=== PATIENT | female | born 1935 | race Caucasian/White ===

== ENCOUNTER 2019-05-04 15:27 | Inpatient (IN) | payer MEDICARE, OTHER ==
[~2019-05-04 15:27] MED LIST: Iopamidol-370 76% 500 ML 1 ML ONE
[2019-05-04 16:36] LABS: #Lymphocytes 0.8 thou/uL (1.20-3.40); #Monocytes 0.3 thou/uL (0.11-0.59); #Neutrophils 7.6 thou/uL (1.40-6.50); %Basophils 0.3 % (0.0-1.0); %Eosinophils 0.2 % (0.0-10.0); %Lymphocytes 9.4 % (21.0-51.0); %Monocytes 3.5 % (0.0-10.0); %Neutrophils 86.6 % (42.0-75.0); Hemoglobin 13.9 g/dL (12.0-16.0); Mean Corpuscular HGB CONC 33.6 g/dL (32.0-36.0); Mean Corpuscular Hemoglobin 33.9 pg (27.0-31.0); Platelet Count 251 thou/uL (130-400); RBC Distribution Width 12.2 % (11.5-14.5); White Blood Cell (WBC) Count 8.7 thou/uL (4.8-10.8)
--- NOTE | 2019-05-04 16:44 | CT ---
CT head noncontrast HISTORY: Altered mental status. Twitching. Known intracranial masses. COMPARISON: None available. FINDINGS: Centered at the cox-white junction of the right parietal lobe is a subtle, somewhat ill-de fined oval 0.9 cm hyperdense focus. It is at the periphery of a large area of decreased density having the appearance of encephalomalacia. This extends through the cortex of the right parietal lobe at the level of the hyperdense lesion. Less prominent encephalomalacia is present throughout the white matter of the left cerebral hemispher e. A tiny hyperdense focus associated with a sulcus at the left occipital lobe on image #14 may represen t a vessel or punctate calcification. Ventricles are unremarkable. No significant mass effect. IMPRESSION: Severe bilateral scoliosis. Small hyperdense lesion near the cox-white junction of the right parietal lobe is likely associated with a mass, given the patient's history. The hyperdensity could represent a small amount of hemorrhagic component, calcium, or melanin. Encephalomalacia extending through the cortex at this lev el suggest component of an old infarct. Contrast enhanced exam is pending.
[2019-05-04 16:55] LABS: Acetaminophen Less than 6.0 mcg/mL (10.0-30.0); Alcohol Less than 10 mg/dL (Less than 10); CK (CPK) 26 U/L (29-168); Magnesium 1.2 mg/dL (1.6-2.6); Salicylate Less than 8.0 mg/dL (15.0-30.0)
[2019-05-04 17:01] LABS: ALT (SGPT) 18 U/L (8-55); AST (SGOT) 15 U/L (5-34); Albumin 4.1 g/dL (3.4-4.8); Alkaline Phosphatase 67 U/L (40-110); Anion Gap 16 mmol/L (10-20); BUN (Urea Nitrogen) 18 mg/dL (9.8-20.1); Bilirubin, Total 0.6 mg/dL (0.2-1.2); Calc. Creatinine Clearance 0 mL/min (70-130); Calcium 9.6 mg/dL (7.8-10.44); Carbon Dioxide 24 mmol/L (23-31); Chloride 105 mmol/L (98-107); Estimated GFR-MDRD 66; Globulin 2.5 g/dL (2.4-3.5); Glucose 126 mg/dL (83-110); Potassium 3.8 mmol/L (3.5-5.1); Protein, Total 6.6 g/dL (6.0-8.3); Sodium 141 mmol/L (136-145)
--- NOTE | 2019-05-04 17:03 | CT ---
CT arteriogram neck with IV contrast CT arteriogram head with IV contrast CT brain with IV contrast HISTORY: Altered mental status. Known intracranial masses. FINDINGS: Prominent calcification throughout the arterial structures. Normal branching of the great v essels at the aortic arch with prominent calcification. Within the proximal right ICA, calcification results in narrowing of approximately 60%. Remainder of the internal carotid arteries a re free of significant stenosis. [place] is intact. Good flow into each cerebral and cerebellar system. No enhancing brain lesions are reliably demonstrated. There is subtle gyriform enhancement of the rig ht parietal lobe were encephalomalacia is again demonstrated. No enhancing lesion is apparent at the cox-white junction were a small hyperdense lesion was present on recent noncontrast enhanced CT. Inferior most images show irregular soft tissue density mass within the superior segment left lower l obe measuring up to 3.4 cm greatest diameter. There is suggestion of some internal vessels. A pleural-based 2.1 cm mass is also present within the posterior aspect of the right upper lobe. Sugges tion of spiculated margins. Subtle spiculated lesion is also present at the left lung apex without a well-defined mass evident. IMPRESSION: Atherosclerosis with short segment focus of moderate stenosis within the right internal c arotid artery. The abnormality in the right parietal lobe, in the absence of an enhancing mass, likely represents a small focus of hemorrhagic transformation of a developing infarct. Masses within the partially visualized lungs as detailed above. CT chest is pending. Findings were discussed with Dr. Rogers of the emergency department at 1653 hours. Code CR.
[2019-05-04] MEDS ORDERED: Lorazepam 2 MG/ML VIAL ONE (17:07)
--- NOTE | 2019-05-04 17:22 | RAD ---
SINGLE VIEW OF THE CHEST: 05/04/19 COMPARISON: None. HISTORY: Seizure-like movements in the left arm and altered mental status. FINDINGS: Single view of the chest shows an enlarged cardiomediastinal silhouette. Linear opacity in the right lung base likely represents atelectasis. There is no evidence of consolidation, mass, or pleural effu tj. IMPRESSION: Right basilar atelectasis. POS: C
[2019-05-04] MEDS ORDERED: Magnesium 2 GM/50 ML BAG (IN WATER) ONE (17:41)
[2019-05-04] MEDS ORDERED: Dexamethasone 10 MG/ML VIAL ONE (17:41)
--- NOTE | 2019-05-04 17:42 | CT ---
CT chest with IV contrast CT abdomen and pelvis with IV contrast HISTORY: Lung cancer. Chest and abdomen pain. FINDINGS: The pleural-based mass within the posterior aspect of the right upper lobe measures 1.7 cm greatest oblique diameter on the current axial images. The lobular mass within the medial aspect of the superior segment left lower lobe is 3.2 cm. Subtle area of spiculation without definite mass is demonstrated at the left lung apex. Lungs are oth erwise hyperinflated with scattered areas of scarring. Old bilateral rib fractures. No mediastinal adenopathy or pleural fluid are apparent. Small low-densi ty adenoma of the left adrenal gland. Prominent calcification throughout the arterial structures. Diverticula arise from the colon without adjacent inflammation. Tiny cyst of the left kidney. Vertebroplasty and compression deformities at the lumbosacral junction of the spine. There is retropu lsion of the superior endplate and cemented at the lower of the 2 levels, compromising the AP diameter of the central canal by approximately 40%. IMPRESSION: Bilateral lung masses as detailed above, consistent with known history of lung cancer. Prominent atherosclerosis. Diverticulosis. No evidence of diverticulitis. Moderate compromise of the central spinal canal of the lower thoracic spine due to retropulsion of a compressed vertebral body and vertebroplasty cement.
[2019-05-04 18:13] LABS: Bilirubin Negative (Negative); Blood, Urine Negative (Negative); Clarity Clear (Clear); Glucose, Urine (Dipstick) Normal (Negative); Leukocyte Negative Leu/uL (Negative); Nitrite Negative (Negative); Protein, Urine (Dipstick) Negative (Neg-Trace); Urobilinogen Normal mg/dL (Less than 2)
[2019-05-04 18:23] LABS: Amphetamine Not Detected (NotDetected); Barbiturates Screen Not Detected (NotDetected); Benzodiazepine Screen Detected (NotDetected); Cocaine Metabolite Screen Not Detected (NotDetected); Medtox Control Line Valid? VALID (VALID); Medtox Reader # READER 4; Methadone Not Detected (NotDetected); Methamphetamine Not Detected (NotDetected); Opiate Screen Not Detected (NotDetected); Oxycodone Screen Not Detected (NotDetected); Phencyclidine (PCP) Not Detected (NotDetected); THC/Cannabinoid Screen Not Detected (NotDetected); Tricyclic Screen Not Detected (NotDetected)
--- NOTE | 2019-05-04 21:04 | PDOC.HHP ---
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 She recently moved froim the [facility] to here and is living in assisted living. She has a pulmonology progress note with her, which is where most of chart review comes from, I am sure that this history is incomplete as she had a number of specialists managing some very complicated issues who she is attempting to transfer and find new doctors here. From what I can gather, catia had a lung mass which was biopsied and was adenocarcinoma. She has apparantly had mets to the brain and recieved 9 sessions of CyberKnife, which appears to be a robotic assisted form of radiation therapy. She was doing well, continued to have partial seizures/L arm tremor, they worsened suddenly and became less controllable, she takes Keppra at home for seizure management. She has appt with Dr Quintero at end of month, is unsure if she has had keppra or had run out and does not remember details of medications. outside records reviewed patient had with her and in chart. CT head revealed parietal lobe mass 0.9cm Of note patient had discussed with previous medical record administrator about goals of care and she prefers a more comfort based approach in general and confirms DNR. palliative care consult placed. neurosurgery consult also placed. NOTE: outside CT reveals possible hemorrhagic transform of mass. MRI pending here Hospitalist ROS - Review of Systems Constitutional: denies: fever, chills Eyes: denies: pain, vision change ENT: denies: ear pain, mouth pain Respiratory: denies: cough, shortness of breath, wheezing Cardiovascular: denies: chest pain, palpitations Gastrointestinal: denies: nausea, vomiting, hematochezia Genitourinary: denies: dysuria, frequency Skin: denies: rash, lesions Neurological: reports: incoordination, seizures All other systems reviewed; all pertinent +/- noted in HPI/Subj Hospitalist History - Past Medical History Other Medical History: lung adenocarcinoma w/ mets to brain HTN COPD - Past Surgical History Past Surgical History: reports: Cholecystectomy Other Surgical History: L hip reppair stent in pancreas and removal - Family History Family History: reports: no pertinent history - Social History Smoking Status: Former smoker Alcohol: reports: Occassional, Heavy - Exam General Appearance: NAD, awake alert Eye: PERRL, anicteric sclera ENT: normocephalic atraumatic, no oropharyngeal lesions, moist mucosa Neck: supple, symmetric, no JVD, no thyromegaly, no lymphadenopathy, no carotid bruit Heart: RRR, no murmur, no gallops, no rubs, normal peripheral pulses Respiratory: CTAB, no wheezes, no rales, no ronchi, normal chest expansion, no tachypnea, normal percussion Gastrointestinal: soft, non-tender, non-distended, normal bowel sounds, no palpable masses, no hepatomegaly, no splenomegaly, no bruit Extremities: no cyanosis, no clubbing, no edema Skin: normal turgor, no lesions, no rashes Neurological: cranial nerve grossly intact, normal sensation to touch, no weakness, no focal deficits, no new deficit Musculoskeletal: normal tone, normal strength, no muscle wasting Psychiatric: normal affect, normal behavior, A&O x 3 Hospitalist Results - Labs Result Diagrams: 05/04/19 16:27 05/04/19 16:27 Lab results: WBC 8.7 thou/uL (4.8-10.8) 05/04/19 16:27 Hgb 13.9 g/dL (12.0-16.0) 05/04/19 16:27 Hct 41.4 % (36.0-47.0) 05/04/19 16:27 MCV 101.0 fL (78.0-98.0) H 05/04/19 16:27 Plt Count 251 thou/uL (130-400) 05/04/19 16:27 Neutrophils % 86.6 % (42.0-75.0) H 05/04/19 16:27 Sodium 141 mmol/L (136-145) 05/04/19 16:27 Potassium 3.8 mmol/L (3.5-5.1) 05/04/19 16:27 Chloride 105 mmol/L (98-107) 05/04/19 16:27 Carbon Dioxide 24 mmol/L (23-31) 05/04/19 16:27 BUN 18 mg/dL (9.8-20.1) 05/04/19 16:27 Creatinine 0.83 mg/dL (0.6-1.1) 05/04/19 16:27 Glucose 126 mg/dL (83-110) H 05/04/19 16:27 Lactic Acid 1.5 mmol/L (0.5-2.2) 05/04/19 16:27 Calcium 9.6 mg/dL (7.8-10.44) 05/04/19 16:27 Total Bilirubin 0.6 mg/dL (0.2-1.2) 05/04/19 16:27 AST 15 U/L (5-34) 05/04/19 16:27 ALT 18 U/L (8-55) 05/04/19 16:27 Alkaline Phosphatase 67 U/L (40-110) 05/04/19 16:27 Creatine Kinase 26 U/L (29-168) L 05/04/19 16:27 Serum Total Protein 6.6 g/dL (6.0-8.3) 05/04/19 16:27 Albumin 4.1 g/dL (3.4-4.8) 05/04/19 16:27 Urine Ketones Negative mg/dL (Negative) 05/04/19 17:27 Urine Blood Negative (Negative) 05/04/19 17:27 Urine Nitrite Negative (Negative) 05/04/19 17:27 Ur Leukocyte Esterase Negative Pamella/uL (Negative) 05/04/19 17:27 Hospitalist H&P A/P - Plan Plan: 83 year old female with PMH COPD, HTN, metastatic lung adenocarcinoma w/ brain mets admitted for: # worsening simple partial seizure activity in the setting of lung adenocarcinoma metastatic to brain - admit to floor - neurosurgery consulted by ED and will follow, also consults placed for oncology and neurology, appreciate assistance - start high dose IV dex 4mg q6h - MRI brain w/wo contrast - patient previously saw Dr Azul of neurology in [place] and Dr Phillips of pulmonology and Dr Gonzalez (sp?) of oncology, she is perhaps leaning towards hospice or palliative level care, so will consult palliative care and can make a decision this admission on whether to become hospice and return to prior situation w/ comfort measures vs set her up with new specialists in the area - continue keppra # history of COPD - patient has an old pulm note with her, was on inhalers for COPD, has 100 pack year smoking hisotry, resume home meds once med rec complete # HTN - ordered PRNs, restart home meds once med rec complete Code status: discussed, DNR. palliative consult. apprecaite all specialist efforts
[2019-05-05] MEDS ORDERED: Lorazepam 2 MG/ML VIAL SLOW IVP PRN (00:43)
[2019-05-05] MEDS ORDERED: levETIRAcetam 500 MG TAB PO SCH ×2 (00:45→09:00)
[2019-05-05] MEDS ORDERED: Bisacodyl 10 MG SUPP PR PRN (00:48)
[2019-05-05] MEDS ORDERED: Acetaminophen 325 MG TAB PO PRN (00:48)
[2019-05-05] MEDS ORDERED: HYDROcodone/Acetaminophen 5/325 mg Tablet PO PRN (00:48)
[2019-05-05] MEDS ORDERED: Bisacodyl 5 MG TAB PO PRN (00:48)
[2019-05-05] MEDS ORDERED: Morphine 2 MG/ML SYRINGE SLOW IVP PRN (01:00)
[2019-05-05] MEDS ORDERED: Promethazine HCl 12.5 MG in Sodium Chloride 0.9% 50 ML IVPB PRN (01:00)
[2019-05-05] MEDS ORDERED: Ondansetron PF 4 MG/2 ML Vial IVP PRN (01:00)
[2019-05-05] MEDS ORDERED: Dexamethasone 4 mg/ml Vial SLOW IVP SCH (01:00)
[2019-05-05] MEDS ORDERED: cloNIDine 0.1 MG TAB PO PRN (01:00)
[2019-05-05] MEDS ORDERED: hydrALAZINE 20 MG/ML VIAL SLOW IVP PRN (01:00)
[2019-05-05 03:40] VITALS: BMI 32.8
[2019-05-05] MEDS: Dexamethasone 4 mg/ml Vial SLOW IVP SCH ×4 (06:36→23:39)
[2019-05-05] MEDS: Senokot S 8.6-50 MG TAB PO SCH ×2 (08:42→20:40)
--- NOTE | 2019-05-05 09:06 | CON ---
DATE OF CONSULTATION: HISTORY OF PRESENT ILLNESS: The patient is an 83-year-old female with a past medical history of metastatic lung cancer to the brain, hypertension, COPD, who presented to the emergency department for left upper extremity weakness and twitching. The patient reports that she was diagnosed with metastatic lung cancer in October of 2018. This was diagnosed in [place]. She has been seen by Radiation Oncology and Neurology. She has been treated with XRT of the brain, and her oncologists also recommended followup chemotherapy. However, the patient has decided that she does not wish to pursue chemotherapy or further treatments at this time. She recently moved to this area to live with her family and enjoy the time she has left. She also has a history of seizures with this metastatic lung cancer diagnosis. She is currently taking Keppra 500 mg [address] A noncontrast CT head on arrival is notable for small hyperdense area in the right parietal lobe, which likely represents underlying metastatic lesion with hemorrhagic conversion. Neurosurgery was consulted for further evaluation and management of this patient. PAST MEDICAL HISTORY: COPD, hypertension, metastatic lung cancer with brain lesion. PAST SURGICAL HISTORY: Cholecystectomy, left hip fracture repair, hysterectomy, pancreatic stent, XRT in the brain. SOCIAL HISTORY: The patient is a social drinker. She does not use any drugs. She is a former tobacco user. ALLERGIES: SHE IS ALLERGIC TO LEVAQUIN AND AMOXICILLIN. CURRENT MEDICATION LIST: 1. Keppra 500 mg p.o. b.i.d. 2. Amlodipine 5 mg one tablet p.o. daily. 3. Albuterol inhalation two puffs p.r.n. 4. Citalopram 20 mg one tablet p.o. daily. 5. Hydrochlorothiazide 25 mg one tablet p.o. daily. 6. Levothyroxine 88 mcg one tablet p.o. daily. 7. Lisinopril 40 mg one tablet p.o. daily. 8. Omeprazole 20 mg one tablet p.o. daily. 9. Temazepam 30 mg one tablet p.o. daily. REVIEW OF SYSTEMS: Per HPI. PHYSICAL EXAMINATION: VITAL SIGNS: Temperature is 97.7, pulse is 89, respirations 18, the patient is 93% on 2 L nasal cannula, blood pressure is 157/54. CONSTITUTIONAL: Awake, alert, no acute distress, sitting up in during her practice. HEENT: Head, normocephalic and atraumatic. Eyes, PERRLA. Extraocular movements are intact. ENT, oral mucosa is pink, intact, moist. She has normal voice. NECK: Nontender to palpation. Free active range of motion. No meningismus or nuchal rigidity. CARDIAC: Regular rate and rhythm. RESPIRATORY: Symmetric chest expansion. No evidence of dyspnea. MUSCULOSKELETAL: Free active range of motion of all extremities. She is mildly weak throughout the left upper extremity, 4+/5. NEUROLOGIC: A and O x4. Mild weakness in the left upper extremity as noted in musculoskeletal exam. ASSESSMENT AND PLAN: An 83-year-old female with metastatic lung cancer with known underlying brain lesion, who has had increased left upper extremity weakness and some twitching sensation, which may represent focal seizures. Her CT shows a small hyperdense area in the right parietal lobe which may represent hemorrhagic conversion of one of these known lesions. I discussed with the patient at length at this point, she does not desire any further invasive treatments. She has moved to live with family and would like to enjoy the time she has left in comfort. Not recommending any acute neurosurgical intervention, and Palliative Care consult has been placed. I am recommending Neurology consult as well as the patient appears to have had increase in focal seizures for any seizure medication recommendations. Please reach out to Neurosurgery for additional questions or concerns. Job ID: [id number]
--- NOTE | 2019-05-05 10:34 | CON ---
DATE OF CONSULTATION: 05/05/2019 CONSULTING PHYSICIAN: Hospitalist Service. IMPRESSION: 1. 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 2. The patient has elected to not undergo any treatment for her cancer. PLAN: 1. Increase Keppra to 750 mg twice a day. 2. The patient will be discharged home. HISTORY OF PRESENT ILLNESS: Ms. Adhikari is an 83-year-old woman with a known history of lung cancer with brain mets. She has a history of focal seizures that commonly occur on the left side. She has been well controlled since October with her current dose of Keppra. She had a breakthrough seizure yesterday and came to the hospital. She has not had any further seizures since admission. She had been compliant with her medication. She has seen an oncologist in [place], chemotherapy was offered, but she has elected not to pursue any treatment. Her CT of the brain showed some small amount of hemorrhage in the right posterior parietal region. There is fairly diffuse white matter, has edema present on the right more so than the left. There is no mass effect associated with it. Her lab work was unremarkable. Vital Signs have been stable. She is afebrile. She is without any particular complaints of headache, nausea, vomiting, dizziness, lateralized weakness, or numbness. PAST MEDICAL HISTORY: COPD and hypertension. ALLERGIES: AMOXIL WITH LEVOFLOXACIN. SOCIAL HISTORY: No ongoing tobacco or alcohol use. FAMILY HISTORY: Noncontributory. REVIEW OF SYSTEMS: Ten-system review of systems is otherwise negative. PHYSICAL EXAMINATION: VITAL SIGNS: Blood pressure 157/54, pulse 89, respirations 18, and temperature 97.7. HEENT: Pupils are equal and reactive. Conjunctivae clear. Oropharynx clear. NECK: Supple. No lymphadenopathy. EXTREMITIES: No cyanosis or edema. NEUROLOGIC: She is alert and appropriate. Her speech is fluent and clear. Cranial nerves are intact. Motor exam showed good environmental health safety engineer strength bilaterally. There is no fix or drift. No tremor. Dysmetria is present. Sensations intact to touch. She can walk with the use of a walker. LABORATORY DATA: Laboratory studies were reviewed. Imaging was reviewed. SUMMARY: This is an elderly woman with terminal cancer. She had a breakthrough seizure. Her dose of Keppra can be increased and she can follow up with her doctors at home. Job ID: [id number]
[2019-05-05] MEDS: Lisinopril 20 MG TAB PO SCH (11:38)
[2019-05-05] MEDS: Citalopram 20 MG TAB PO SCH (11:39)
[2019-05-05] MEDS: Levothyroxine Sodium 88 MCG TAB PO SCH (11:39)
[2019-05-05] MEDS: Amlodipine 5 MG TAB PO SCH (11:40)
--- NOTE | 2019-05-05 11:40 | MRI ---
EXAM: MRI of the brain without and with contrast HISTORY: Lung cancer with metastatic disease to the brain; seizures COMPARISON: 05/04/2019 TECHNIQUE: Multiplanar multisequence MR images were obtained of the brain without and with IV contras t. FINDINGS: There are 2 abnormal areas of enhancement in the right cerebellar hemisphere with surrounding vasogen ic edema measuring 2.3 and 2.2 cm in size. These areas demonstrate peripheral enhancement without enhancement of the central aspect of the lesion. A small abnormal area of enhancement is also seen in the left posterior frontal lobe measuring 7 mm in size. There is a 1.6 cm area of susceptibility artifact with surrounding edema in the right frontal lobe wh ich does not demonstrate significant enhancement. This may represent an old area of hemorrhage or a treated metastasis. This appears to correspond to the hyperdensity seen on CT. No hydronephrosis. The expected flow voids are present. Corpus callosum, pituitary, and craniocervical junction are within normal limits. The calvarium and overlying soft tissues are unremarkable. The paranasal sinuses and mastoid air cells are well aerated. IMPRESSION: Scattered bilateral enhancing masses are consistent with intracranial metastatic disease.
[2019-05-05] MEDS ORDERED: Magnevist 469MG/ML 20 ML VIAL ONE (12:45)
--- NOTE | 2019-05-05 18:49 | PDOC.HOSPP ---
- Subjective Encounter Date: 05/05/19 Encounter Time: 10:30 Subjective: pt up in bed no complains. she feels her left hand tremors are better. - Objective Vital Signs & Weight: Vital Signs (12 hours) Temp Pulse Pulse Pulse Resp BP BP 05/05/19 15:48 98.0 F 86 18 05/05/19 13:54 87 88 154/60 H 05/05/19 12:00 97.8 F 86 18 05/05/19 11:40 83 05/05/19 11:38 157/54 H 05/05/19 08:41 05/05/19 07:45 97.7 F 89 18 BP BP Pulse Ox 05/05/19 15:48 143/73 H 93 L 05/05/19 13:54 160/63 H 05/05/19 12:00 153/60 H 93 L 05/05/19 11:40 05/05/19 11:38 05/05/19 08:41 93 L 05/05/19 07:45 157/54 H 93 L Weight Weight 185 lb 11.2 oz Result Diagrams: 05/04/19 16:27 05/04/19 16:27 Hospitalist ROS - Review of Systems Cardiovascular: denies: chest pain, palpitations, orthopnea, paroxysmal noc. dyspnea, edema, light headedness, other Gastrointestinal: denies: nausea, vomiting, abdominal pain, diarrhea, constipation, melena, hematochezia, other Genitourinary: denies: dysuria, frequency, incontinence, hematuria, retention, other - Medication Medications: Active Medications Generic Name Dose Route Start Last Admin Trade Name Freq PRN Reason Stop Dose Admin Amlodipine Besylate 5 mg 05/05/19 09:00 05/05/19 11:40 Norvasc PO 5 mg DAILY JACKIE Administration Citalopram Hydrobromide 20 mg 05/05/19 09:00 05/05/19 11:39 Celexa PO 20 mg DAILY JACKIE Administration Dexamethasone 4 mg 05/05/19 06:00 05/05/19 18:06 Decadron SLOW IVP 4 mg Q6HR JACKIE Administration Hydralazine HCl 10 mg 05/05/19 01:00 05/05/19 04:21 Apresoline SLOW IVP 10 mg Q6H PRN Administration SBP GREATER THAN 160 Levetiracetam 500 mg 05/05/19 09:00 05/05/19 08:43 Keppra PO 500 mg BID JACKIE Administration Levothyroxine Sodium 88 mcg 05/05/19 09:00 05/05/19 11:39 Synthroid PO 88 mcg DAILY JACKIE Administration Lisinopril 40 mg 05/05/19 09:00 05/05/19 11:38 Zestril PO 40 mg DAILY JACKIE Administration Pantoprazole Sodium 40 mg 05/05/19 09:00 05/05/19 11:43 Protonix PO Not Given DAILY JACKIE Senna/Docusate Sodium 1 tab 05/05/19 09:00 05/05/19 08:42 Senokot S PO Not Given BID JACKIE Sodium Chloride 10 ml 05/05/19 00:47 05/05/19 08:45 Flush - Normal Saline IVF 10 ml PRN PRN Administration Saline Flush - Exam Neck: negative: supple, symmetric, no JVD, no thyromegaly, no lymphadenopathy, no carotid bruit, JVD Heart: negative: RRR, no murmur, no gallops, no rubs, normal peripheral pulses, irregular, diminshed peripheral pulses, murmur present, II/IV, III/IV Respiratory: negative: CTAB, no wheezes, no rales, no ronchi, normal chest expansion, no tachypnea, normal percussion, rales, rhonchi, tachypneic, wheezes Hosp A/P (1) Seizure Code(s): R56.9 - UNSPECIFIED CONVULSIONS Status: Acute (2) Metastatic lung cancer (metastasis from lung to other site) Code(s): C34.90 - MALIGNANT NEOPLASM OF UNSP PART OF UNSP BRONCHUS OR LUNG Status: Acute (3) Brain tumor Code(s): D49.6 - NEOPLASM OF UNSPECIFIED BEHAVIOR OF BRAIN Status: Acute - Plan will await neurology and neruosurgery recommendation. will continue keppra for now. Pt states that when she drinks wine her tremors improve. will order her some wine if available.
[2019-05-05] MEDS ORDERED: levETIRAcetam 500 mg/5 ml Oral Solution PO SCH (19:00)
[2019-05-05] MEDS ORDERED: Temazepam 15 MG CAP PO SCH (21:00)
--- NOTE | 2019-05-05 22:00 | CON ---
DATE OF CONSULTATION: HISTORY OF PRESENT ILLNESS: This is an 83-year-old female, who used to live in [place], has moved to this area approximately two months ago. 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 According to the patient, she has four metastatic deposits. This was treated with CyberKnife in [place]. She was seen by Dr. Enrique and his financial administrative assistant named Karli at [facility]. The phone number for [facility] is [phone]. At the third visit, the patient was told that there is no immunotherapy and the only treatment available is chemotherapy, which she declined. The patient is readmitted here with seizure and her Keppra dose is being adjusted. She is asking me if there is any treatment other than chemotherapy. The patient lives in an independent care facility. She has been oxygen dependent for two years. She uses a walker. Currently, she is DNR. PAST MEDICAL HISTORY: Positive for COPD and hypertension. PAST SURGERIES: Include cholecystectomy, left hip fracture repair, hysterectomy, and pancreatic stent. PERSONAL FAMILY AND SOCIAL HISTORY: As above. She is a social drinker. She does not use drugs and used to smoke in the past. ALLERGIES: DRUGS WITH ADVERSE EFFECT INCLUDE LEVAQUIN AND AMOXICILLIN. CURRENT MEDICATIONS: 1. Keppra. 2. Amlodipine. 3. Albuterol. 4. Citalopram. 5. Hydrochlorothiazide. 6. Synthroid. 7. Lisinopril. 8. Omeprazole. 9. Temazepam. REVIEW OF SYSTEMS: She denies chest pain or headache,. She has limited physical activity. PHYSICAL EXAMINATION: GENERAL: The patient is alert and oriented. She has some difficulty hearing. VITAL SIGNS: Temperature 97.7, pulse 89, blood pressure 157/54, and oxygen saturation on nasal cannula 93%. Height 5 feet 3 inches, weight 185 pounds from hospital record. BSA according to [employer] is 1.93 sq m. LYMPH NODES: Not palpable in cervical, axillary, or inguinal area. BREASTS: Without masses or nipple retraction. CHEST: Clear to percussion and auscultation. HEART: Regular rhythm, S1, S2. ABDOMEN: Soft. No hepatosplenomegaly. EXTREMITIES: Without pedal edema or calf tenderness. LABORATORY DATA: CBC; WBC 8700, hemoglobin 13.9, platelet 251,000, MCV 101. Differential; neutrophils %, lymphocytes 9.4%. Comprehensive metabolic profile is essentially within normal limits with normal BUN and creatinine, calcium and liver enzymes. IMAGING: CT scan of chest and abdomen on 05/04/2019 showed pleural-based mass in the right upper lobe measuring 1.7 cm, a tubular mass in the superior segment of left lower lobe measuring 3.2 cm. A small low-density adenoma of the left adrenal gland was noted, size not specified. MRI of the brain showed scattered bilateral lung masses. On the right side, two abnormal masses were noted measuring 2.3 and 2.2 cm. 7 mm area of enhancement was noted in the left posterior frontal lobe. ASSESSMENT AND RECOMMENDATION: This patient likely had adenocarcinoma of the lung with multiple brain metastases. I have no reason to not believe the medical oncologist to state that there is no option other than chemotherapy. The fact that this was third visit will mean that molecular studies were done and results available to the medical oncologist. I will try to get those records and most likely will end up confirming what the medical oncologist had said. I kind of agree that this patient is not a good candidate for chemotherapy because of patient is short of breath at rest and she is mobility challenged and has been on oxygen for two years. Job ID: [id number]
[2019-05-06 05:12] LABS: #Lymphocytes 0.5 thou/uL (1.20-3.40); #Monocytes 0.2 thou/uL (0.11-0.59); #Neutrophils 6.9 thou/uL (1.40-6.50); %Basophils 0.2 % (0.0-1.0); %Eosinophils 0.1 % (0.0-10.0); %Lymphocytes 6.5 % (21.0-51.0); %Monocytes 2.1 % (0.0-10.0); Mean Corpuscular HGB CONC 33.2 g/dL (32.0-36.0); Mean Corpuscular Hemoglobin 33.6 pg (27.0-31.0); Mean Platelet Volume 9.1 fL (7.4-10.4); Platelet Count 246 thou/uL (130-400); RBC Distribution Width 12.3 % (11.5-14.5); Red Blood Cell (RBC) Count 3.88 mill/uL (4.20-5.40); White Blood Cell (WBC) Count 7.6 thou/uL (4.8-10.8)
[2019-05-06 05:32] LABS: Anion Gap 14 mmol/L (10-20); BUN (Urea Nitrogen) 23 mg/dL (9.8-20.1); Calc. Creatinine Clearance 76 mL/min (70-130); Calcium 9.1 mg/dL (7.8-10.44); Carbon Dioxide 23 mmol/L (23-31); Chloride 104 mmol/L (98-107); Estimated GFR-MDRD 72; Glucose 143 mg/dL (83-110); Magnesium 1.7 mg/dL (1.6-2.6); Potassium 3.7 mmol/L (3.5-5.1); Sodium 137 mmol/L (136-145)
[2019-05-06] MEDS: Dexamethasone 4 mg/ml Vial SLOW IVP SCH (06:25)
[2019-05-06 08:00] VITALS: TEMP 97.7
[2019-05-06] MEDS: Lisinopril 20 MG TAB PO SCH (08:26)
[2019-05-06] MEDS: Levothyroxine Sodium 88 MCG TAB PO SCH (08:26)
[2019-05-06] MEDS: Citalopram 20 MG TAB PO SCH (08:26)
[2019-05-06] MEDS: Senokot S 8.6-50 MG TAB PO SCH (08:27)
[2019-05-06] MEDS: Amlodipine 5 MG TAB PO SCH (08:27)
[2019-05-06] MEDS ORDERED: levETIRAcetam 500 mg/5 ml Oral Solution PO SCH (09:00)
[2019-05-06 12:11] VITALS: BP 141/65
[2019-05-06] MEDS ORDERED: Dexamethasone 4 mg/ml Vial SLOW IVP SCH (21:00)
--- NOTE | 2019-05-07 13:37 | DIS ---
DATE OF ADMISSION: 05/04/2019 DATE OF DISCHARGE: 05/06/2019 DISCHARGE DIAGNOSES: 1. Seizure. 2. Metastatic lung cancer to the brain. 3. Brain tumor. HOSPITAL COURSE: The patient is a very pleasant 83-year-old female, who initially presented to the hospital with significant amount of shaking and also worsening left arm shaking. The patient actually has a history of lung cancer with metastases to the brain. She has undergone several treatments with CyberKnife for her brain lesions. She has history of partial seizures and has been taking her medications. However, she stated that on the day of arrival, she started having significant amount of seizures. She also stated that she recently tapered off her steroids that she has been on. The day she stopped her steroids the next following day is when she had these symptoms. She initially was put on Decadron here. She was seen by Neurosurgery, Neurology, and also Oncology. The patient actually does not want any further treatments. I did recommend her hospice and she actually has agreed to it. She moved here because her son lives here, she wants to go home with hospice. She stated that she did not want any more further treatment. She is currently a do not resuscitate. The patient actually improved. She was discharged home with hospice and she will follow up with her primary care as needed. She also had a CTA while she was here, which indicated atherosclerosis with short segments focus of moderate stenosis within the right internal carotid artery. The abnormalities in the right parietal lobe in the absence of enhancing mass likely represent a small foci of hemorrhagic transformation of a development infarct. Mass is within the visualized lungs as detailed above. CT is pending. HOME MEDICATIONS: I have given her: 1. A taper of Decadron. 2. Keppra 750 b.i.d. per Neurology recommendation. 3. Amlodipine 5 mg daily. 4. Levothyroxine 88 mcg daily. 5. Temazepam 1 capsule at bedtime. 6. Hydrochlorothiazide one p.o. daily. 7. Lisinopril one daily. 8. Celexa 20 mg daily. 9. Omeprazole 1 p.o. daily. PHYSICAL EXAMINATION: VITAL SIGNS: Temperature 97.7, pulse 79, respirations 18, 94% on 1.5 L, blood pressure 141/65. GENERAL: She is awake, alert, and oriented x3. Does not appear in distress. CV: S1 and S2 present. No murmurs, rubs, or gallops. ABDOMEN: Soft and nontender. Bowel sounds are present x2. Again, she will be discharged home. She will follow up with her primary. Job ID: [id number]
--- NOTE | 2019-05-08 03:03 | PQF ---
[employer] Crystal Reports Winform Viewer MARIA TERESAFIDENCIO JAN KWONG MD [id number] PADMINI SIM [id number] CLINICAL DOCUMENTATION CLARIFICATION FORM: POST DISCHARGE Addendum to original discharge summary date: ____ Late entry note date: __ DATE: 05/08/19 ATTN: Jan Lujan Please exercise your independent, professional judgment in responding to the clarification form. Clinical indicators are provided on the bottom of this form for your review Can you please further clarify the specificity of seizure based on the clinical indicators below? Please check appropriate box(s): [ ] Epilepsy simple partial [ ] Seizure disorder [ ] Convulsion only [ ] Other diagnosis [ ] Unable to determine In addition, please specify: Present on Admission (POA): [ ] Yes [ ] No [ ] Unable to determine For continuity of documentation, please document condition throughout progress notes and discharge summary. Thank You. CLINICAL INDICATORS - SIGNS / SYMPTOMS / LABS H and P pg.1- worsening seizure activity H and P pg.1- CT head reveal parietal lobe mass 0.9cm H and P pg.1- NOTE: outside CT reveals hemorrhagic transform of mass H and P pg.4- worsening partial seizure activity in the setting of lunch adenocarcinoma metastatic to brain Consult 05/05 Dr. Quintero- recurrent seizure secondary to brain metastasis Consult 05/05 Dr. Quintero- CT of the brain showed some small amount of hemorrhage in the right posterior region RISK FACTORS lung cancer which metastasized to the brain- H and P pg.1 HTN- H and P pg.4 83 years old female TREATMENTS: Keppra at Home- H and P pg.1 Brain MRI 05/[address] Quintero 05/[address] Sales / Decadron 10mg IV- MAR Keppra oral solution 750mg PO- MAR (This form is maintained as a part of the permanent medical record) 2014 [employer] All Rights Reserved [email or web address] [not provided] MTDD
--- NOTE | 2019-05-08 03:10 | PQF ---
[employer] Crystal Reports Winform ViewerFIDENCIO MOREL JAN KWONG MD [id number] PADMINI SIM [id number] CLINICAL DOCUMENTATION CLARIFICATION FORM: POST DISCHARGE Addendum to original discharge summary date: ____ Late entry note date: __ DATE: 05/08/19 ATTN: Jan Lujan Please exercise your independent, professional judgment in responding to the clarification form. Clinical indicators are provided on the bottom of this form for your review Can ypu please further clarify the diagnosis being treated and evaluated? Please check appropriate box(s): [ ] Vasogenic edema [ ] Hemorrhagic conversion [ ] Both Vasogenic edema and hemorrhagic conversion [ ] Insignificant/abnormal imaging findings [ ] Other diagnosis [ ] Unable to determine In addition, please specify: Present on Admission (POA): [ ] Yes [ ] No [ ] Unable to determine For continuity of documentation, please document condition throughout progress notes and discharge summary. Thank You. CLINICAL INDICATORS - SIGNS / SYMPTOMS / LABS MRI Brain 05/05- there are 2 abnormal areas of enhancement in the right cerebral hemisphere with surroundings of vasogenic edema measuring 2.3 and 2.[address] [place] [facility] [place] Angio 05/04- the abnormality in the right parietal lobe in the absence of an enhancing mass, likely represents a small focus of hemorrhagic transformation of a developing infarct H and P pg.1- worsening seizure activity H and P pg.1- CT head reveal parietal lobe mass 0.9cm H and P pg.1- NOTE: outside CT reveals hemorrhagic transform of mass H and P pg.4- worsening partial seizure activity in the setting of lunch adenocarcinoma metastatic to brain Consult 05/05 Dr. Quintero- recurrent seizure secondary to brain metastasis Consult 05/05 Dr. Quintero- CT of the brain showed some small amount of hemorrhage in the right posterior region RISK FACTORS lung cancer which metastasized to the brain- H and P pg.1 HTN- H and P pg.4 83 years old female TREATMENTS: Brain MRI 05/[address] Quintero 05/[address] Sales Apradron 10mg IV- MAR Keppra oral solution 750mg PO- JUL (This form is maintained as a part of the permanent medical record) 2014 [employer]. All Rights Reserved [email or web address] [not provided] MTDD
== END 2019-05-06 13:13 | disposition hospice, home (50) | DRG 54 ==
LOC: ERS 15:27 → ERHOLD 19:41 → 2SE 05-05 03:33
PROVIDERS: ADMIT Hospitalist; ATTEND Hospitalist
DX: C79.31 Secondary malignant neoplasm of brain (principal); I61.1 Nontraumatic intracerebral hemorrhage in hemisphere, cortical; C34.90 Malignant neoplasm of unspecified part of unspecified bronchus or lung; I62.9 Nontraumatic intracranial hemorrhage, unspecified; Z66 Do not resuscitate; I10 Essential (primary) hypertension; J44.9 Chronic obstructive pulmonary disease, unspecified; Z51.5 Encounter for palliative care; Z87.891 Personal history of nicotine dependence; Z90.49 Acquired absence of other specified parts of digestive tract; Z90.710 Acquired absence of both cervix and uterus; Z88.1 Allergy status to other antibiotic agents; Z79.51 Long term (current) use of inhaled steroids; Z79.890 Hormone replacement therapy; Z79.899 Other long term (current) drug therapy
CPT/HCPCS: 36415; 70450; 70496; 70498; 70553; 71045; 71250; 74177; 80048; 80053; 80306; 80307; 81003; 82550; 83605; 83735; 84443; 85025; 93005; A4353; A9579; J0360; J1100; J2060; J3475; Q9967